=== PATIENT | female | born 1975 | race Caucasian/White ===

== ENCOUNTER → 2021-07-04 08:00 | Outpatient (CLI) | payer OTHER, SELFPAY ==
[2021-07-04 09:26] LABS: Add Manual Diff / Slide Review NO; Basophils Absolute Auto 0 /uL (0-100); Basophils Percent Auto 0.3 % (0-2); Eosinophils Absolute Auto 100 /uL (0-450); Eosinophils Percent Auto 1.2 % (2-4); Hematocrit 38.3 % (36-46); Hemoglobin 12.7 g/dL (12.0-16.0); Lymphocytes Absolute Auto 2100 /uL (1100-4500); Lymphocytes Percent Auto 23.6 % (25-40); Mean Corpuscular HGB Conc 33.1 % (30-36); Mean Corpuscular Hemoglobin 30.2 PG (26-34); Mean Corpuscular Volume 91.1 fL (80-100); Monocytes Absolute Auto 500 /uL (0-900); Monocytes Percent Auto 5.4 % (3-14); Neutrophils Absolute Auto 6200 /uL (1500-7000); Neutrophils Percent Auto 69.5 % (50-75); Platelet Count 208 X10^3/uL (150-400); Red Cell Distribution Width 13.6 % (11.6-14.8); White Blood Cell Count 8.9 X10^3/uL (4.5-11.0)
[2021-07-04 09:31] LABS: INR 1.1 (0.9-1.3); Prothrombin Time 12.5 SECONDS (10.1-12.7)
[2021-07-04 09:34] LABS: PTT Partial Thromboplastin Tim 31 SECONDS (26.4-36.2)
[2021-07-04 09:35] LABS: BUN Creatinine Ratio 14.9 (6-22); Blood Urea Nitrogen 13 mg/dL (7-17); Calcium 9.7 mg/dL (8.4-10.2); Carbon Dioxide 29 mmol/L (22-32); Chloride 106 mmol/L (98-107); Estimated Glomerular Filt Rate > 60.0 mL/min (>60); Glucose 79 mg/dL (70-100); HEMOLYSIS < 15 (0-50); Potassium 4.4 mmol/L (3.4-5.1); Sodium 139 mmol/L (137-145)
== END ==
LOC: LAB 08:04
PROVIDERS: Referring Provider Orthopaedic Surgery Orthopaedic Surgery of the Spine; Visit Provider Orthopaedic Surgery Orthopaedic Surgery of the Spine
DX: Z01.818 Encounter for other preprocedural examination (principal); Z01.812 Encounter for preprocedural laboratory examination; Z51.81 Encounter for therapeutic drug level monitoring
CPT/HCPCS: 36415; 80048; 85025; 85610; 85730; 93005

== ENCOUNTER → 2021-07-28 08:16 | Outpatient (CLI) | payer OTHER, SELFPAY ==
[2021-07-28 14:35] LABS: COVID19 -Nasal RAPID Negative (Negative)
== END ==
PROVIDERS: Visit Provider Nurse Practitioner Family
DX: Z20.822 Contact with and (suspected) exposure to COVID-19 (principal)
CPT/HCPCS: 87635

== ENCOUNTER 2021-07-30 07:47 | Day surgery (SDC) | payer OTHER, SELFPAY ==
[2021-07-28 11:51] VITALS: BMI 34.0
[2021-07-30] VITALS (12 sets, daily range): BP systolic 100–147; BP diastolic 47–92; PULSE 69–94; RESP 12–18; TEMP 35.9–36.6; O2SAT 96–100; BMI 34.0
--- NOTE | 2021-07-30 | DI.RAD.S_ITS ---
PROCEDURE: XR LUMBAR SPINE 2-3V INDICATIONS: L5-S1 TLIF TECHNIQUE: 2 intraoperative fluoroscopy views of the lumbar spine were acquired. COMPARISON: [facility], CR, XR LUMBAR SPINE WITH OBLIQUES, 12/20/2020, 13:29. [facility], RF, LUMBAR TRANSFORAMINAL PENELOPE, 01/28/2021, 10:31. [facility], MR, MR LUMBAR SPINE WITHOUT CONTRAST, 01/14/2021, 14:54. FINDINGS: Discectomy and posterior fusion at L5-S1. IMPRESSION: Discectomy and posterior fusion at L5-S1. Dictated by: Meagan Miller M.D. on 07/30/2021 at 12:03 Approved by: Meagan Miller M.D. on 07/30/2021 at 12:03
[2021-07-30] MEDS: LACTATED RINGERS 1,000 ML 42 ML IV ×2 (08:34→11:09)
[2021-07-30] MEDS: SCOPOLAMINE 1 PATCH TOP (08:41)
--- NOTE | 2021-07-30 08:42 | PM.PREOP ---
Pre-operative Note COVID-19 COVID-19 status: Negative Result date/Date tested (Pos, Neg/Pending): 07/28/21 Interval Note History & Physical reviewed/Exam performed by Physician: Yes Changes to H&P: No
[2021-07-30] MEDS: CEFAZOLIN 1 GM VIAL 2 GM IV ×2 (09:00→16:02)
[2021-07-30] MEDS: BUPIVACAINE 0.25% (PF) 30 ML, EPINEPHrine 0.3 MG INJ (09:10)
[2021-07-30] MEDS: BUPIVACAINE LIPOSOME 266 MG/20 ML VIAL INJ (09:11)
--- NOTE | 2021-07-30 09:14 | SUR.OPER ---
Prone on spine table, head in foam head support, padded chest and pelvic supports, gel pad at knees, lower legs supported by pillows; nipples, genitalia and toes free of pressure, arms secured on foam padded arm boards at <90 degrees abduction. Tape over blanket at thigh secured to table.
--- NOTE | 2021-07-30 11:47 | PM.OP.1 ---
Operative Date/Time/Diagnoses Date of procedure: 07/30/21 Time of procedure: 08:45 Pre-op diagnosis: 1. L5-S1 spinal stenosis 2. L5-S1 spondylosis with radiculopathy Post-op diagnosis: same Procedure & Clinicians Procedure: 1. L5-S1 Postero-lateral and posterior interbody fusion 2. L5-S1 interbody cage placement. 3. L5-S1 decompressive laminectomy with bilateral facetecomies 4. L5-S1 Posterior non-segmental instrumentation 5. [place] of bone marrow from iliac crest 6. Utilization of microsurgical technique and operating microscope Same procedure as scheduled: Yes Indications: Patient has been having chronic back pain and worsening lumbar radiculopathy. Patient failed multiple conservative management with worsening pain weakness and numbness in her lower extremity. Patient has been having difficulty performing activity of daily living. After discussing risks benefits of treatment options, patient elected proceed with surgery. Surgeon: Rosalind Coats Asphalt Paving Machine Operator: Jennifer Boland Click Yes if Unassisted: No Anesthesia Type: General Operative Notes Closure Type: primary Specimen(s): none sent Prosthetic devices, grafts, tissues, transplants, or devices: Globus Revolve screws, Rise cage Applied: implant(s) Estimated Blood Loss (mL): 50 Blood products transfused: none Procedure in detail: Patient was seen in the preoperative area. Risks and benefits of the surgery was discussed with the patient. Informed consent was obtained from the patient and placed in the chart. Surgical site was marked. Patient was taken to the operative room. General anesthesia was administered. Prophylactic antibiotic was given to the patient less than 30 min before the incision was made. Patient was placed into a prone position on the Enrique table. Patient's back was then prepped and draped in the sterile fashion. Time-out was performed at this time. Using AP and lateral C-arm imaging the interval between L5-S1 was identified and marked on patient's back. A 2 inch incision 2 in from midline was made on the left side first. The fascia was incised in line with skin incision. Globus MARS retractors was placed inside the incision and docked onto the L5 lamina. Using microsurgical technique and operating microscope, a L5 laminectomy and L5-S1 facetectomy was performed using a Kerrison rongeur. Patient was found to have severe neural foraminal stenosis at L5-S1 level which required a total facetectomy to decompress. The decompression rendered the L5-S1 grossly unstable and required a fusion procedure at same time. The disc space at L5-S1 was identified. And a total diskectomy was performed at L5-S1 level. The endplates were decorticated using a rasp and shaver. The total diskectomy and decortication was performed at L5-S1 level in order to to accomplish a L5-S1 fusion. The local bone from the laminectomy and facetectomy was saved for local bone grafting. After the total diskectomy and decortication was completed, Trifecta bone graft material was combined with local bone that was harvested earlier. At this time, a separate skin is incision was made over the iliac crest. A Jamshidi needle was inserted into the iliac crest through a separate skin incision. 5 cc of bone marrow aspiration was obtained through the separate skin incision using a Jamshidi needle from the iliac crest. The bone marrow aspiration was combined with local bone and the Trifecta bone grafting material. The bone grafting material was placed into the L5-S1 interbody space along with a expandable cage. The cage was expanded to its maximum height using the torque limiting screwdriver. At this time a mirror image incision was made on the right side. The fascia was incised in line with the skin incision. Globus MARS retractor was inserted and docked onto the L5-S1 posterolateral gutter. Using the power drill, posterior-lateral decortication was performed at L5-S1 level until bleeding cortical bone was identified. The remaining bone grafting material was placed into the L5-S1 posterior lateral gutter he order to accomplish posterolateral fusion at the L5-S1 level. Using the double C-arm technique, pedicle screws were placed into the L5-S1 pedicles bilaterally. This was done by placing the Jamshidi needle into the pedicles, then placing the guidewires over the Jamshidi needle, and finally placing the cannulated screws over the guidewires bilaterally. After the pedicle screws were placed, 2 titanium rods was locked into the heads of the pedicle screws using locking caps and torque limiting screwdriver. After all the hardware was placed, and confirmed with AP and lateral C-arm imaging, the wound was then irrigated with sterile normal saline and packed with Ray-Jorge Luis gauze for 3 min to accomplish hemostasis. After the gauze was removed the deep fascia was closed with #1 Vicryl suture. The subcutaneous layer was closed with 2-0 Vicryl. The skin was closed with skin maureen. Patient tolerated the procedure well. There were no complications. Complications: none Post-operative Condition: stable Disposition: PACU Plan for aftercare: Admit to inpatient hospital
[2021-07-30] MEDS: LORazepam 2 MG/ML INJ 0.5 MG IV (12:07)
[2021-07-30] MEDS: fentaNYL 100 MCG/2 ML INJ IV (12:08)
[2021-07-30] MEDS: OXYCODONE/ACETAMINOPHEN 5/325 TABLET 1 TAB PO ×2 (12:34→12:53)
--- NOTE | 2021-07-30 13:25 | PT.IIE ---
Current Diagnoses Spondylolisthesis, lumbosacral region (07/30/21) Spinal stenosis, lumbar region without neurogenic claudication (07/30/21) Other intervertebral disc degeneration, lumbar region (07/30/21) Surgery Performed Operation Date: 07/30/21 08:45 Actual Procedures p L5-S1 TLIF(Not Applicable) - Rosalind Coats MD Medical History (Last Updated 07/28/21 @ 12:26 by Tiffani Woody RN) Anxiety Asthma Depression Diverticulitis Easy bruisability Ectopic GERD (gastroesophageal reflux disease) Hematoma (~2014) Hx of migraine headaches Kidney stones ANANT (obstructive sleep apnea) Pre-diabetes PTSD (post-traumatic stress disorder) Sciatica Sinus drainage Spinal stenosis, lumbar region without neurogenic claudication Spondylolisthesis Physical Therapy Inpatient Evaluation/Re-Eval M1 PT/OT-IP Prior Functional Status Start: 07/30/21 14:21 Freq: NEEDED Status: Active Protocol: Document 07/30/21 13:25 AB (Rec: 07/30/21 14:34 AB [email or web address]) Medical Review Prior Functional Status Medical History Reviewed Yes Communication pt is drowsy Mobility and Gait pt's significant other in room with pt and provided information regarding PLOF and home set up: stated that pt is independent with all mobilities and ambulation without AD Social History Household Members significant other Living Arrangements House Number of Floors (Floors) One Floor Number of Stairs To Enter/Railing? 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 M2 PT-IP Current Condition Start: 07/30/21 14:21 Freq: NEEDED Status: Active Protocol: Document 07/30/21 13:25 AB (Rec: 07/30/21 14:34 AB [email or web address]) Physical Therapy Current Condition Current Condition Evaluation Date 07/30/21 Treatment Diagnosis s/p [id number]; difficulty in walking Onset Date 07/30/21 M3 PT-IP Subjective Start: 07/30/21 14:21 Freq: NEEDED Status: Active Protocol: Document 07/30/21 13:25 AB (Rec: 07/30/21 14:34 AB [email or web address]) Subjective Physical Therapy Visit Type Type Initial Evaluation Visit Start Time 13:25 Visit Stop Time 14:05 Total Visit Minutes 40 Number of BROOMCORN SEEDER Visits 0 Physical Therapy Visit Comments Patient Comments c/o increase back pain and want to get up Therapy Pain Assessment Pain When Pain Assessed At Rest Pain Present Pain Present Pain Reported Location Back Intensity 10 Scale Used Numeric (0 - 10) Pain Behaviors Crying,Facial Grimacing, Guarding Pain Management Techniques Modification of Treatment,Re- positioning,Timing of Activity with Medications M4 PT-IP Mobility and Gait Start: 07/30/21 14:21 Freq: NEEDED Status: Active Protocol: Document 07/30/21 13:25 AB (Rec: 07/30/21 14:34 AB [id number]) PT-Bed Mobility Assessment Rolling Type of Rolling Log Rolling Level of Assist Moderate Assistance,1 Person Assistance Supine to Sit Supine to Sit Moderate Assistance,Maximum Assistance,1 Person Assistance ,Bedrails Sit to Supine Sit to Supine Moderate Assistance,Maximum Assistance,1 Person Assistance PT-Transfer Assessment Sit to and From Stand Sit to and from Stand Moderate Assistance,Maximum Assistance,1 Person Assistance ,Use of Upper Extremities Equipment Transfer Assistive Device Gait Belt,Front Wheeled Walker Orthotic/Prosthetic Devices or Brace: No Transfers Transfer Destination Bedside Commode Transfer Technique Stand Step Pivot Transfer Ability Level of Assist Moderate Assistance,Maximum Assistance,Use of Upper Extremities Comments Mobility Comments pt c/o 10/10 pain in bed and wanting to get up. Pt is still drowsy but able to follow directions. pt's significant other in room with pt. completed log roll supine to sti mod to max A and max cues. pt was able to sit on EOB min A and cues. pt requesting to use the toilet. completed sit to stand from EOB mod to max A and cues and completed step transfer using fWW to bedside commode. pt completed sit to stand from the commode mod to max A and was able to take a few steps towards the HOB ~ 2 ft. completed sit to supine mod to max A with LE elevation. positioned pt in bed. call light and table placed within reach. BP prior to mobility: 131/68 after mobility in supine: 104/64 pt is drowsy. informed SO regarding pt's back precautions and log roll bed mobility. post-op folder provided. caregiver training set up for tomorrow 07/31 at 10 am. Gait Assessment Gait Gait Assistance Required: Moderate Assistance,Maximum Assistance Distance (Feet) 2 Able to Maintain Weight Bearing Status Yes During Gait Assistive Devices Assistive Device Gait Belt,Front Wheeled Walker Orthotic/Prosthetic Devices or Brace: No Gait Deviations General Gait Pattern Decreased Stride Length, Decreased Feet Clearance,Step- to Gait Factors Limiting Gait Function Factors Limiting Gait Function Decreased Activity Tolerance, Decreased Strength,Difficulty Following Directions, Incoordination,Limited Range of Motion,Pain,Poor Balance, Poor Safety Awareness PT-Balance Assessment Sitting Balance and Reactions Static Sitting Balance Ability Fair Dynamic Sitting Balance Ability Fair Standing Balance and Reactions Static Standing Balance Ability Poor Dynamic Standing Balance Ability Poor Device Used FWW M5 PT-IP Objective Assessments Start: 07/30/21 14:21 Freq: NEEDED Status: Active Protocol: Document 07/30/21 13:25 AB (Rec: 07/30/21 14:34 AB [email or web address]) Orientation Orientation/Cognition Level of Alertness Lethargic Orientation Name Language Function Ability No Deficits Noted Safety Awareness Decreased Safety Awareness Memory Description Short Term Impaired Gross Range of Motion Lower Extremity ROM Assessment Within Functional Limits Strength Lower Extremity Strength Hip 3+/5 Knee 4-/5 Muscle Tone Muscle Tone WNL Yes M6 PT-IP Treatment Start: 07/30/21 14:21 Freq: NEEDED Status: Active Protocol: Document 07/30/21 13:25 AB (Rec: 07/30/21 14:34 AB [email or web address]) Physical Therapy Treatment Education Education Provided Precautions,Weight Bearing Status,Post-Op Packet,Safety M7 PT-IP Assessment and Plan Start: 07/30/21 14:21 Freq: NEEDED Status: Active Protocol: Document 07/30/21 13:25 AB (Rec: 07/30/21 14:34 AB [email or web address]) PT Summary Assessment and Plan Potential Rehabilitation Potential Good Status of Condition at Evaluation Evolving Summary Impairments Pain,ROM,Strength,Balance, Coordination,Sensation,Tone, Cognition,Bed Mobility, Transfers,Gait,Activity Tolerance Assessment Summary pt s/p L5S1 TLIF POD 0. caregiver training set up for tomorrow at 10 am. will continue to assess progress for safe d/c plan. Goals Bed Mobility Goal Standby Assistance Transfer Goal Standby Assistance,Front Wheeled Walker Gait Goal Standby Assistance,Front Wheel Walker Gait Distance 150 Other Goals up/down 1 step using FWW SBA Days to Meet Goals 5 Frequency of Treatment Frequency Of Treatment Twice a Day Treatment Plan Physical Therapy Treatment Plan Bed Mobility Training,Transfer Training,Gait Training, Therapeutic Exercise,Balance Retraining,Post Op Education, Discharge Planning,Hot or Cold Pack,Neuromuscular Re-ed, Coordination Retraining,Manual Therapy Precautions Lumbar Precautions Log Roll,No Twisting,Limit Bending,Lifting Restriction of 10 lbs,Gait Belt above Incisional Area Recommendations To Nursing Amount of Assist Needed 1 Person Assist Discharge Recommendations PT Discharge Recommendations Home with Assistance Transportation Needs at Discharge Private Vehicle
--- NOTE | 2021-07-30 13:28 | PC.NURSE ---
Day shift: Pt on unit from PACU at approx 1320. Dressing on her back is CDI. CMS intact and PPP. VS WNL. RA 99%. Denies any chest pain or SOB. BT's hypo. Denies any nausea. Will continue w/ post-op plan of care. Pt also tearful upon arrival to AC unit.
[2021-07-30] MEDS: SODIUM CHLORIDE 0.9% 1,000 ML 100 ML IV (14:07)
[2021-07-30] MEDS: ONDANSETRON 4 MG/2 ML INJ IV ×2 (14:12→20:29)
[2021-07-30] MEDS: HYDROMORPHONE 0.5 MG INJ IV ×2 (14:19→20:51)
[2021-07-30] MEDS: hydrOXYzine pamoate 25 MG CAPSULE PO ×2 (15:59→20:29)
[2021-07-30] MEDS: OXYCODONE IR 5 MG TABLET 10 MG PO ×2 (15:59→18:39)
[2021-07-30] MEDS: ONDANSETRON 4 MG ODT PO (18:08)
--- NOTE | 2021-07-30 18:11 | PC.NURSE ---
Day shift: Pt with nausea again after OOB to BR. Gave 4mg PO Zofran and ok's with Mitchell in pharmacy. Reports pain 04/05.
[2021-07-30] MEDS: DOCUSATE 100 MG CAPSULE PO (20:28)
[2021-07-30] MEDS: CARBIDOPA-LEVODOPA 10/100 TABLET 1 EACH PO (20:28)
[2021-07-30] MEDS: GABAPENTIN 600 MG TABLET PO (20:29)
[2021-07-30] MEDS: SENNOSIDES 8.6 MG TABLET 17.2 MG PO (20:29)
[2021-07-30] MEDS: PANTOPRAZOLE DR 40 MG TABLET PO (20:29)
[2021-07-30] MEDS: TRAZODONE 50 MG TABLET PO (20:29)
--- NOTE | 2021-07-30 22:44 | PC.NURSE ---
Addendum entered by Roxana Duque R.N. 07/31/21 05:37: Patient continuing to have pain issues and states pain eases a little but never gets down low enough to be comfortable. Medicated with another dose of IV Dilaudid and Dr. Walters called/informed. See new orders. Addendum entered by Roxana Duque R.N. 07/31/21 01:32: Pain improved from earlier 8/10 down to 7/10 but patient states it just started to kick in so declines additional pain meds at this time. Will call if pain doesn't continue to improve as is aware she can also have IV Dilaudid. Original Note: Patient is alert and oriented. Breath sounds CTA with RA sat of 100%. HRR. Complained of nausea after being out of bed so was medicated with Zofran at 2028; no emesis. BT present and is passing flatus. Denied dysuria, frequency or urgency with urination. Is able to move self in bed. Up to bathroom with walker and SBA. Has open area in right abdominal crease; applied barrier cream and placed linen to keep skin . Dressing to back is intact with quarter size amount serous drainage on left side of dressing. Did complain of 7/10 pain despite having received oxycodone shortly before shift change so medicated with Vistaril and IV Dilaudid and is currently sleeping. CMS is intact. Wearing bilateral foot SCD's. Reported having had fall within past 3 months so fall risk score is high and bed alarm is activated although patient does call appropriately for assistance.
[2021-07-31 00:20] VITALS: BP 113/58; PULSE 69; RESP 17; TEMP 36.6; O2SAT 100
[2021-07-31] MEDS: SODIUM CHLORIDE 0.9% 1,000 ML 100 ML IV (00:22)
[2021-07-31] MEDS: CEFAZOLIN 1 GM VIAL 2 GM IV (00:22)
[2021-07-31] MEDS: OXYCODONE IR 5 MG TABLET 10 MG PO ×2 (00:40→04:20)
[2021-07-31] MEDS: HYDROMORPHONE 0.5 MG INJ IV ×2 (02:09→05:15)
[2021-07-31] MEDS: hydrOXYzine pamoate 25 MG CAPSULE PO (04:21)
[2021-07-31 04:39] VITALS: BP 114/68; PULSE 84; RESP 17; TEMP 36.8; O2SAT 97
[2021-07-31] MEDS: SODIUM CHLORIDE 0.9% FLUSH 10 ML IV ×2 (05:16→09:07)
[2021-07-31] MEDS: HYDROMORPHONE 4 MG TABLET PO ×2 (06:08→10:03)
[2021-07-31 08:15] VITALS: BP 134/79; PULSE 77; RESP 16; O2SAT 100
[2021-07-31] MEDS: MAGNESIUM HYDROXIDE 30 ML UDC PO (09:05)
[2021-07-31] MEDS: DOCUSATE 100 MG CAPSULE PO (09:05)
[2021-07-31] MEDS: PROPRANOLOL 40 MG TABLET PO (09:11)
[2021-07-31] MEDS: hydrOXYzine pamoate 25 MG CAPSULE 50 MG PO (10:07)
--- NOTE | 2021-07-31 10:28 | PT.IPTN ---
Current Diagnoses Spondylolisthesis, lumbosacral region (07/30/21) Spinal stenosis, lumbar region without neurogenic claudication (07/30/21) Other intervertebral disc degeneration, lumbar region (07/30/21) Surgery Performed Operation Date: 07/30/21 08:45 Actual Procedures p L5-S1 TLIF(Not Applicable) - Rosalind Coats MD Physical Therapy Treatment Note M2 PT-IP Current Condition Start: 07/30/21 14:21 Freq: NEEDED Status: Active Protocol: Document 07/30/21 13:25 AB (Rec: 07/30/21 14:34 AB [id number]) Physical Therapy Current Condition Current Condition Evaluation Date 07/30/21 Treatment Diagnosis s/p [id number]; difficulty in walking Onset Date 07/30/21 M3 PT-IP Subjective Start: 07/30/21 14:21 Freq: NEEDED Status: Active Protocol: Document 07/31/21 09:49 KS (Rec: 07/31/21 12:45 KS [id number]) Subjective Physical Therapy Visit Type Type Treatment Note Visit Start Time 09:49 Visit Stop Time 10:28 Total Visit Minutes 39 Notes Conducted caregiver training w / pts spouse Number of MILLING PLANER OPERATOR Visits 1 Therapy Pain Assessment Pain When Pain Assessed At Rest Pain Present Pain Present Pain Reported Location Back Intensity 7 Scale Used Numeric (0 - 10) Pain Behaviors Facial Grimacing,Guarding, Wincing Pain Management Techniques Modification of Treatment,Re- positioning,Timing of Activity with Medications M4 PT-IP Mobility and Gait Start: 07/30/21 14:21 Freq: NEEDED Status: Active Protocol: Document 07/31/21 09:49 KS (Rec: 07/31/21 12:45 KS [id number]) PT-Bed Mobility Assessment Rolling Type of Rolling Log Rolling Level of Assist Standby Assistance,1 Person Assistance Supine to Sit Supine to Sit Standby Assistance,1 Person Assistance,Bedrails Sit to Supine Sit to Supine Standby Assistance,1 Person Assistance,Bedrails Scooting Scooting to Edge of Bed Standby Assistance PT-Transfer Assessment Sit to and From Stand Sit to and from Stand Standby Assistance,1 Person Assistance,Use of Upper Extremities Equipment Transfer Assistive Device Gait Belt,Front Wheeled Walker Orthotic/Prosthetic Devices or Brace: No Transfers Transfer Destination Bed Transfer Technique Pt ambulated w/ FWW Transfer Ability Level of Assist Standby Assistance,Contact Guard Assistance,1 Person Assistance,Use of Upper Extremities Comments Mobility Comments Pt in bed upon arrival from therapy w/ spouse in room for caregiver training. Pt c/o 7/ 10 back pain. Able to recall 3 /3 spinal precautions. SBA for logroll, sidelying<>sit. Nursing team arrive for BP and pain meds. Pt then sit<>stand w/ FWW SBA and ambulated to and transferred to toilet SBA. Pt then ambulated ~100 ft w/ FWW to platform step and ascended/descended 1x platform step w/ FWW and CGA provided by pts spouse. Pt and spouse state they feel safe to complete step leading into home. Pt then ambulated additonal ~100ft back to room SBA to CGA and completed logroll back into bed SBA. Pt left w/ all needs in reach, SCDs and bed alarm on and spouse in room. Gait Assessment Gait Gait Assistance Required: Standby Assistance,Contact Guard Assist,1 Person Assist Distance (Feet) 200 Able to Maintain Weight Bearing Status Yes During Gait Assistive Devices Assistive Device Gait Belt,Front Wheeled Walker Orthotic/Prosthetic Devices or Brace: No Gait Deviations General Gait Pattern Decreased Stride Length, Decreased Feet Clearance Factors Limiting Gait Function Factors Limiting Gait Function Decreased Activity Tolerance, Decreased Strength,Difficulty Following Directions, Incoordination,Limited Range of Motion,Pain,Poor Balance, Poor Safety Awareness Comments Gait Comments Pt ambulated ~200 ft total w/ FWW SBA to CGA. Pt has decreased stride and foot clearance w/ increased weightbearing through BUE due to pain, but was able to improve w/ distance. Stair Climbing Assessment Evaluation Level of Assist On Stairs Contact Guard Assistance,1 Person Assistance Devices Stair Climbing Assistive Devices Front Wheel Walker Technique/Endurance Stair Climbing Direction Ascend and Descend Stair Climbing Technique Step to Step Number of Steps Climbed 1 Stair Climbing Set # Repetitions (reps) 1 Comments Stair Climbing Comments Pt ascended/descended 1 platform step w/ FWW and CGA provided by pts spouse. Pt and spouse say they feel safe to ascend 1 step leading into home. PT-Balance Assessment Sitting Balance and Reactions Static Sitting Balance Ability Good Dynamic Sitting Balance Ability Good Standing Balance and Reactions Static Standing Balance Ability Good Dynamic Standing Balance Ability Good Device Used FWW M5 PT-IP Objective Assessments Start: 11/03/21 14:21 Freq: NEEDED Status: Active Protocol: Document 07/30/21 13:25 AB (Rec: 07/30/21 14:34 AB [id number]) Orientation Orientation/Cognition Level of Alertness Lethargic Orientation Name Language Function Ability No Deficits Noted Safety Awareness Decreased Safety Awareness Memory Description Short Term Impaired Gross Range of Motion Lower Extremity ROM Assessment Within Functional Limits Strength Lower Extremity Strength Hip 3+/5 Knee 4-/5 Muscle Tone Muscle Tone WNL Yes M6 PT-IP Treatment Start: 07/30/21 14:21 Freq: NEEDED Status: Active Protocol: Document 07/31/21 09:49 KS (Rec: 07/31/21 12:45 KS [id number]) Physical Therapy Treatment Education Education Provided Precautions,Weight Bearing Status,Post-Op Packet,Safety M7 PT-IP Assessment and Plan Start: 07/30/21 14:21 Freq: NEEDED Status: Active Protocol: Document 07/31/21 09:49 KS (Rec: 07/31/21 12:45 KS [id number]) PT Summary Assessment and Plan Potential Rehabilitation Potential Good Status of Condition at Evaluation Evolving Summary Impairments Pain,ROM,Strength,Balance, Coordination,Sensation,Tone, Cognition,Bed Mobility, Transfers,Gait,Activity Tolerance Assessment Summary Pt showed improvements w/ bed mobility, transfers, and ambulation today. SBA for bed mobility, transfers, SBA to CGA for ambulation w/ FWW, CGA to ascend/descend 1 step w/ FWW and able to tolerate ~ 200ft ambulaton w/ FWW w/ improved gait w/ distance. Completed caregiver training w / pts spouse who feels safe to assist pt at home. Pt and spouse confirm they have FWW for home use. Pt safe to return home w/ spouse assistance when medically stable. Goals Bed Mobility Goal Standby Assistance Transfer Goal Standby Assistance,Front Wheeled Walker Gait Goal Standby Assistance,Front Wheel Walker Gait Distance 150 Other Goals up/down 1 step using FWW SBA Days to Meet Goals 5 Frequency of Treatment Frequency Of Treatment Twice a Day Treatment Plan Physical Therapy Treatment Plan Bed Mobility Training,Transfer Training,Gait Training, Therapeutic Exercise,Balance Retraining,Post Op Education, Discharge Planning,Hot or Cold Pack,Neuromuscular Re-ed, Coordination Retraining,Manual Therapy Precautions Lumbar Precautions Log Roll,No Twisting,Limit Bending,Lifting Restriction of 10 lbs,Gait Belt above Incisional Area Recommendations To Nursing Amount of Assist Needed 1 Person Assist Discharge Recommendations PT Discharge Recommendations Home with Assistance Transportation Needs at Discharge Private Vehicle
[2021-07-31] MEDS: DEXAMETHASONE 10 MG/ML VIAL 6 MG IV (11:04)
--- NOTE | 2021-07-31 11:10 | P.DS_ITS ---
History of Present Illness History of Present Illness Date Patient Seen: 07/31/21 Time Patient Seen: 11:10 Chief complaint: Low back pain s/p TLIF Narrative: The patient is complaining of moderate to severe low back pain this morning. She was switched to oral Dilaudid. She describes the pain as burning and spasms in her low back. Denies any new numbness or tingling. No fevers, chills, night sweats. Overall she is doing well and would like to go home as long as her pain is better managed. Discharge Providers Provider Discharge Date: 07/31/21 Primary care physician: Brandan Green MD Consults: 07/30/21 13:01 Consult to Occupational Therapy Evaluate & Treat Comment: Physician Instructions: Evaluate and treat Consult to Physical Therapy Evaluate & Treat Comment: Physician Instructions: Evaluate and Treat Discharge provider: Jennifer Boland PA-C Summary Hospital Course Discharge Diagnosis: 1. L5-S1 spinal stenosis 2. L5-S1 spondylosis with radiculopathy Hospital Course: Date of procedure: 07/30/21 Time of procedure: 08:45 Procedure & Clinicians Procedure: 1. L5-S1 Postero-lateral and posterior interbody fusion 2. L5-S1 interbody cage placement. 3. L5-S1 decompressive laminectomy with bilateral facetecomies 4. L5-S1 Posterior non-segmental instrumentation 5. [place] of bone marrow from iliac crest 6. Utilization of microsurgical technique and operating microscope Same procedure as scheduled: Yes Indications: Patient has been having chronic back pain and worsening lumbar radiculopathy. Patient failed multiple conservative management with worsening pain weakness and numbness in her lower extremity.? Patient has been having difficulty performing activity of daily living.? After discussing risks benefits of treatment options, patient elected proceed with surgery. Surgeon: Rosalind Coats Survey Crew Chief: Jennifer Boland Click Yes if Unassisted: No Anesthesia Type: General Operative Notes Closure Type: primary Specimen(s): none sent Prosthetic devices, grafts, tissues, transplants, or devices: Globus Revolve screws, Rise cage Applied: implant(s) Estimated Blood Loss (mL): 50 Blood products transfused: none Status at Discharge Cognitive/behavioral status at discharge: oriented Functional status at discharge: uses cane/walker Overall status at discharge: patient is progressing back to baseline Exam Vital Signs (past 8 hours): - 07/31/21 04:39 07/31/21 08:15 Temperature 98.3 F Pulse Rate 84 77 Respiratory Rate 17 16 Blood Pressure 114/68 134/79 Pulse Oximetry 97 100 Oxygen Delivery Method Room Air Oxygen Flow Rate 0 Narrative Exam Narrative: 46-year-old female, resting comfortably in bed, no acute distress. Dressing has mild serosanguineous drainage, otherwise clean, dry, intact. Bilateral lower extremity motor functions are grossly intact. Sensation is grossly intact to light touch in bilateral lower extremities. Bilateral calves are soft, nontender to palpation. PFS Medical History Anxiety Asthma Depression Diverticulitis Easy bruisability Ectopic GERD (gastroesophageal reflux disease) Hematoma (~2014) Hx of migraine headaches Kidney stones ANANT (obstructive sleep apnea) Pre-diabetes PTSD (post-traumatic stress disorder) Sciatica Sinus drainage Spinal stenosis, lumbar region without neurogenic claudication Spondylolisthesis Surgical History H/O arthroscopy of left knee H/O arthroscopy of right knee History of ankle surgery History of arthroscopy of right shoulder History of hysterectomy Hx of bariatric surgery (2019) Hx of breast reduction, elective (~1987) Hx of cholecystectomy (~2009) Hx of tonsillectomy Social History household members: spouse and children Smoking Status: Current every day smoker alcohol intake: current Discharge Assessment & Plan Assessment and Plan Assessment: Stable status post lumbar TLIF, marginal postoperative pain control Plan of Treatment: -mobilize with PT. Limit bending, lifting, twisting. Weightbearing as tolerated with front wheel walker -we are changing her current pain regimen to include oral Dilaudid 4 mg every 4 hours, Vistaril 50 mg every 4 hours, increase gabapentin to 300 mg at breakfast and lunch and 600 mg at bedtime. We will also do 1 dose of Decadron -planning on DC home today once cleared by PT and better pain control Discharge Plan Discharge Plan Patient Disposition: Home Discharge orders & Medications Discharge Orders: Discharge (Order); Ordered 07/31/21 Ordered By: Jennifer Boland Prescriptions: New gabapentin [Neurontin] 600 mg Tablet See Rx Instructions .ROUTE .COMPLEX Qty: 60 RF: 0 acetaminophen 500 mg capsule 500 mg PO Q4H MDD Max 3000 mg per day PRN (Reason: Pain, Mild (1-3)) Qty: 90 RF: 0 docusate sodium 100 mg Capsule 100 mg PO BID Qty: 30 RF: 0 hydromorphone 4 mg Tablet 4 mg PO Q4HR PRN (Reason: Pain, Severe (7-10)) Qty: 42 RF: 0 hydroxyzine pamoate 25 mg Capsule 50 mg PO Q4HR PRN (Reason: Pain, spasms, nausea) Qty: 60 RF: 0 Continued gabapentin 600 mg Tablet 600 mg PO BEDTIME RF: 0 trazodone 50 mg Tablet 50 mg PO BEDTIME RF: 0 ondansetron HCl [Zofran] 4 mg Tablet 4 mg PO Q6H PRN (Reason: Nausea) RF: 0 omeprazole 40 mg Capsule,Delayed Release(Dr/Ec) 40 mg PO BEDTIME RF: 0 tramadol 50 mg Tablet 50 mg PO BID PRN (Reason: Pain) RF: 0 alprazolam 0.5 mg Tablet 0.5 - 1 mg PO Q8H PRN (Reason: panic attacks) RF: 0 propranolol 40 mg Tablet 40 mg PO QAM RF: 0 carbidopa-levodopa 10-100 mg Tablet 1 tab PO BEDTIME RF: 0 Discontinued cyclobenzaprine 10 mg Tablet 10 mg PO QD-BID PRN (Reason: Muscle Spasm) RF: 0 acetaminophen 500 mg Tablet 1,000 mg PO Q6H PRN (Reason: Pain) RF: 0 Follow up/Referrals: Brandan Green MD [Primary Care Provider] - Rosalind Coats MD [Physician] - (10-14 days for postoperative visit) Diet/Activity/Treatments Diet: Diet as Tolerated and Regular Other treatments: Medications: -OTC Tylenol 500 mg 1 tablet every 4 hours as needed for pain/fever. Max 6 tablets per day. -Dilaudid 4 mg take 1 tablet every 4 hours as needed for moderate-severe pain (narcotic pain medication). -As needed medications: -Ducolax and /or MiraLax as needed for constipation from narcotic pain medications. -Pepcid AC as needed for stomach upset. -Vistaril (hydroxyine) 25mg 1-2 tabs every 4 hours as needed for spasms/pain/nausea. -Gabapentin 300mg at breakfast and lunch, then 600mg at bedtime, for nerve pain. Dressing/Wound care: -Keep dressing in place until postoperative follow-up office visit. -Okay to shower. Keep wound out of direct water stream. Can use PressNSeal plastic wrap to protect from shower stream. No soaking or submerging until all the scabs fall off (approximately 6 weeks). -Please call the office if dressing becomes wet, soiled, or saturated. Activities: -Limit bending, lifting, twisting. -Weight-bearing as tolerated. Use front wheeled walker, and progress to cane when safe. -Continue with home exercises as directed by your physical therapist. -Ice your incision as needed for pain/inflammation/swelling. Protect your skin with a folded pillowcase. Follow-up: -Follow-up with your surgeon or PA in the office in 10-14 days after surgery. -Follow-up with your surgeon 6 weeks postoperatively. Call the office if you have chest pain, shortness of breath, significant swelling that will not resolve with elevating, fever over 101?, significantly worsening pain. [facility]: [phone] Skin/Wound/Dressing Care Report to your healthcare provider any signs of infection, such as:: chills, fever, night sweats, unusual drainage and unusual redness Visit Report/Discharge Packet Instructions: DI for Transforaminal Lumbar Interbody Fusion Stand Alone Forms: Surgery Discharge Discharge Data Primary Care Provider: Brandan Green Attending Provider: Rosalind Coats VTE Deep Vein Thrombosis/Pulmonary Embolism Present on Admission: No
[2021-07-31] MEDS: GABAPENTIN 300 MG CAPSULE PO (11:16)
--- NOTE | 2021-07-31 13:30 | PC.NURSE ---
Day shift: Paperwork signed and all questions answered. Pt has all personal belongings. scripts sent electronic. Dressing remains CDI and CMS intact. Pain remains 6 to 7/10 but Pt ok with going home and hoping to get some rest/sleep. Denies any nausea today. Ambulated in halls multiple times and tolerated well. Steady on feet w/ FWW. Taken to car that he spouse in driving in by [employer] Tay. Pt encouraged to take stool softeners as long has she is taking narcotic pain meds.
--- NOTE | 2021-07-31 13:33 | OT.IPNOTE ---
Pt left prior to being seen for OT eval.
--- NOTE | 2021-07-31 13:45 | CM.DANOTE ---
DCP assessment: patient is a 46yr old female who was admitted for spinal fusion surgery preformed by Dr. MARTINO. CM met with patient at the bedside and explained role. Patient was alert and oriented x4 at time of visit. Patient lives in a single level home with her Christiana. 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 patients will be present to help patient with her recovery. I: [employer] PPO and Self pay Plan: DC home today with spouse no DC management needs noted at this time. Yumi Riojas RNchainstitch binder Discharge Planning/Care Management CM Discharge Assessment Start: 07/31/21 13:42 Freq: Status: Active Protocol: Document 07/30/21 10:00 HS (Rec: 07/31/21 13:45 HS [id number]) Discharge Planning Assessment Assigned Glass Cutting Machine Feeder Yumi Riojas RNchainstitch binder DPOA/Assigned Designee Name Christiana Chicas ( ) Contact Information [phone] Advance Directives? No History Provided By Patient,Medical Record Prior Living Arrangements House Household Members spouse,children Type of transporation used prior to Drives own vehicle admit Independent with ADL's Yes Is patient alert and oriented? Yes Caregiver for Another No DME Already Rented / Owned FWW / Walker,Cane Barriers to Discharge No Discharge Plan Home Referrals Initiated None needed Whiteboard Updated in Patient Room with Yes name and ext. # of Glass Cutting Machine Feeder Review Status In Process Next Review Type Continued Stay Review Pre-Anesthesia Assessment Start: 07/28/21 11:50 Freq: Status: Complete Protocol: Document 07/28/21 11:51 CAB (Rec: 07/28/21 12:48 CAB [id number]) Pre-Anesthesia Assessment Patient Information Reviewed Via Phone Assessment Assessment Completed With Patient Diagnostic Results BMP/CMP,CBC,EKG Comment Labs/EKG @ [facility] 07/04/21, COVID screen 07/28/21 Pending Primary Care Provider Brandan Green Seen Specialist in Last 12 Months Yes Specialist Seen Orthopedist Primary Language Citizen Of [place] Stablehand Required No Height 161.29 cm Weight 88.451 kg Body Mass Index (BMI) 34.0 Hearing Ability Normal Visual Assist Glasses Dentition Type Teeth, Natural Present Barriers to Learning None Hx Anesthesia Reactions Yes: PONV, hard time coming out of it Hx Family Anesthesia Reaction Yes: My parents have a hard time coming out of it, nausea Hx Malignant Hyperthermia No Hx Blood Transfusions Yes: Autologous only Hx Blood Transfusion Reaction No Anesthesia Review Requested No alcohol intake current Alcohol Intake Frequency Other: Occasional Smoking Status Current every day smoker Tobacco type cigarettes Smoking packs per day 1 Substance Use Type does not use Pain Present Pain Reported Musculoskeletal Symptoms Abnormal Gait,Back Pain, Difficulty Walking,Numbness, Radiating Pain into Limb, Tingling History of Falling (Recent or History of Yes ) Patient is completely paralyzed or No completely immobile Mental Status Oriented to own ability Is patient on oxygen? No Does patient have JOHNSON/SOB Yes: r/t Asthma Hx Sleep Apnea Yes: Mild, improved after gastric sleeve surgery Currently Taking a Beta Ariana Yes: Propranolol for anxiety Can You Climb a Flight of Stairs Without No SOB Hx Chest Pain No Hx SOB Yes: f/t asthma Hx Syncope or Dizziness No Anti-Coagulant Therapy No Has a Coping Machine Assembler No Cardiac Testing No Hx Pacemaker/ICD No Pacemaker Rep Required? No Cardiac Clearance Received Not Applicable Diet Type At Home Regular dysphagia No Gastrointestinal Symptoms Reflux Bladder Pattern Frequency,Urgency Urinary Catheter Present No Hx Urinary Self Catheterization No Diabetes No: Pre-diabetic, improved after gastric sleeve surgery Patient No Lactating No Presence of External or Internal Medical Yes: Gastric sleeve, right Devices ankle Have you had any close contact with No someone diagnosed with COVID-19? Marital Status Lives With spouse,children Prior Living Arrangements House Number of Floors (Floors) One Floor Support System Spouse Does the Patient Have Assistance After Yes Surgery Patient Discharge Plan Description Return Home Comment Pt advised overnight length of stay per surgeon Feels Safe in Current Environment Yes Been Physically Hurt or Threatened By a No Person in Current Environment Do you have thoughts of harming yourself None or others? Are you currently considering suicide? No Do you have a plan to hurt yourself or No Plan others? Do You Have Any Spiritual Beliefs That No May Affect Your HC Choices? Do You Have Any Cultural Practices That No May Affect Your HC Choices? Comment Alvaro Who Can We Speak to About Patient's Care Family, friends Identifying Code for Release of Patient Declines to issue Information Health Care Proxy/Next of Kin Christiana () Health Care Proxy Emergency Contact Name Christiana () Emergency Contact Advance Directives? No Power of Senior Mechanical Project Engineer No PAC Instructions Durable medical equipment, Medications to take/avoid, Nasal antibiotic,No ETOH/ petroleum product on skin DOS, NPO,Post-op transportation, Sturdy shoes/comfortable clothes,Do not bring valuables and remove jewelry
== END 2021-07-31 13:33 | disposition home or self-care (01) ==
LOC: OR 07:48 → AC 13:18
PROVIDERS: PCP Family Medicine; Referring Provider Family Medicine; Visit Provider Orthopaedic Surgery Orthopaedic Surgery of the Spine
PROC: (CPT 22633; principal; 2021-07-30 08:45)
DX: M48.061 Spinal stenosis, lumbar region without neurogenic claudication (principal); M54.16 Radiculopathy, lumbar region; M43.17 Spondylolisthesis, lumbosacral region; M51.36 Other intervertebral disc degeneration, lumbar region; K21.9 Gastro-esophageal reflux disease without esophagitis; G43.909 Migraine, unspecified, not intractable, without status migrainosus; G25.81 Restless legs syndrome
CPT/HCPCS: 22633; 20939; 22853; 22840; 63047; 72100; 76000; 97116; 97162; 97530; C1776; C9290; J0171; J0330; J0690; J1100; J1170; J2060; J2405; J2704; J3010